=== PATIENT | male | born 1945 | race Caucasian/White ===

== ENCOUNTER 2023-09-02 09:21 | Outpatient (AMB) | payer OTHER, SELFPAY ==
--- NOTE | 2023-09-02 09:26 | MHC.OFFVIS ---
Intake Vital Signs 09/02/23 10:16 Height 6 ft Weight 202 lb 2 oz BMI 27.4 BP 96/60 Blood Pressure Location Lt brachial Position Sitting Pulse 73 Pulse Source Pulse Oximeter Pulse Oximetry (%) 96 Oxygen Delivery Method Room Air Intake Visit Reasons: ENP-Parkinson Disease - Confirmed Intake Note: Pt presents to the office for new pt evaluation for Parkinson's. Roper Operator Required: No Allergies Sulfa (Sulfonamide Antibiotics) Allergy (Intermediate, Verified 09/02/23 09:33) Fever lamotil Allergy (Intermediate, Uncoded 09/02/23 09:33) Fever Medication List - Last Reconciled 09/02/23 by Yaquelin Marquez MD apixaban 5 mg PO BID aspirin 81 mg PO DAILY atorvastatin 10 mg PO QPM cholecalciferol (vitamin D3) 25 mcg PO DAILY furosemide 20 mg PO DAILY metoprolol succinate ER 25 mg PO BID multivitamin 1 tab PO DAILY HPI HPI Comments History of Present Illness Details 77y/o right handed male with parkinsons and tremors comes for further management. About 10 - 12 years ago he started noticing tremors in both his hands R>L - both action and posture.He was diagnosed with familial tremors ( his father and sister have tremors).He was trialed on primidone, propranolol, gabapentin, sinemet , neupro patch etc with poor response.He noticed his tremors worsened in his left UE and also noticed some difficulty in his left leg weakness in 2015 . He was seen by a movement disorder specialist but could not confirm diagnosis. he had LON scan last year c/w decreased dopamine uptake c/w Parkinsons disease.In 2020 he was referred for DBS but was cancelled because of his new diagnosis of Atrial Fibrillation which is now controlled by medications. He had focused ultrasound therapy ( left) on Jul 22 2023 at [facility] - he did well for 2 weeks and then his symptoms recurred. He also tried calitrio which did not help. Cognition- mild issues Sleep- no sleep talking Mood- normal Motivation- normal Speech- softer, and has drooling Handwriting- illegible Using utensils- can manage Dressing-slower SHower- slower Gait- OK slower , feels off balance Bowel movements - ileostomy for ulcerative colitis Bladder- normal, kidney stones Falls- 2 last year( fell off the ladder) No vertigo No double vision No hallucinations No serious head injury- exposure to trichlorethylene [facility] Medical History (Updated 09/02/23 @ 10:31 by Yaquelin Marquez MD) Familial tremor Ulcerative colitis Macular degeneration Parkinson's disease without fluctuating manifestations Obstructive sleep apnea of adult Hearing loss Atrial fibrillation Kidney stone Cataract Surgical History Mitral valve replaced H/O brain surgery Status post cardiac surgery H/O vasectomy H/O ileostomy Family History Father No problems noted. Mother No problems noted. Social History Household Members: Spouse Housing: House Alcohol intake: former Patient Tobacco Use Status: Former Tobacco user Physical Exam Const General: cooperative, healthy appearing and comfortable Nutritional Appearance: average body habitus Orientation/consciousness: patient oriented x3 Neuro Other: Decreased facial expression and blink Hypophonia High amplitude rest , postural and action tremors left Right - UE mild postural tremors and rest tremors Cog wheel rigidity mild L>R FFM - moderately decreased Foot tapd - decreased nam He has trouble emptying his ileostomy pouch because of his right hand tremors. General: patient oriented x3, moves all extremities and no focal motor deficits Cranial nerves: Yes Bilaterally intact EOM present, Yes Normal facial strength present, Yes Midline tongue present and Yes Symmetric palate elevation present Cognition (Neuro): normal cognition Gait exam (Neuro): Other gait observations present (decreased arm swings, stooped, slow and mild decreased stride) Deep tendon reflexes (DTR's): Right triceps reflex intensity grade: 1+, Left triceps reflex intensity grade: 1+, Rt Biceps (C5, C6): 1+, Left biceps reflex intensity grade: 1+, Right brachioradialis reflex intensity grade: 1+, Left brachioradialis reflex intensity grade: 1+, Right patellar reflex intensity grade: 1+ and Left patellar reflex intensity grade: 1+ Coordination: [id number] test normal Psych Appearance: grossly normal Assessment & Plan Assessment & Plan (1) Familial tremor: Comment: poorly controlled Code(s): G25.0 - Essential tremor (2) Parkinson's disease without fluctuating manifestations: Comment: mild stage 3a Code(s): G20.A1 - Parkinson's disease without dyskinesia, without mention of fluctuations Plan I will retrial him on sinemet 25/100 tid and gabapentin 100mg tid side effects discussed Voice exercises PT for gait and balance Orders: Orders PT Evaluation and Treatment Today G20.A1 - Parkinson's disease without dyskinesia, without mention of fluctuations, G25.0 - Essential tremor Medications: New carbidopa-levodopa 25-100 mg (Sinemet) 1 tab PO TID 90 tabs 1RF gabapentin 100 mg PO TID 90 caps 1RF Coding Level of Care Code New Pt Level 5 (88347) Diagnoses Familial tremor G25.0 Parkinson's disease without fluctuating manifestations G20.A1
[2023-09-02 10:16] VITALS: BP 96/60; PULSE 73; O2SAT 96; BMI 27.4
== END 2023-09-02 10:30 | disposition home or self-care (01) ==
PROVIDERS: Visit Provider Psychiatry & Neurology Neurology
DX: G20.A1 Parkinson's disease without dyskinesia, without mention of fluctuations (principal)
CPT/HCPCS: 99204

== ENCOUNTER → 2023-09-02 09:21 | Outpatient (BNVA) | payer OTHER, SELFPAY | PROVIDERS: Visit Provider Psychiatry & Neurology Neurology | DX: G20.A1 Parkinson's disease without dyskinesia, without mention of fluctuations (principal); G25.0 Essential tremor | CPT/HCPCS: 99202 ==

== ENCOUNTER 2023-11-26 13:12 | Outpatient (AMB) | payer OTHER, SELFPAY ==
--- NOTE | 2023-11-26 13:16 | MHC.OFFVIS ---
Intake Vital Signs 11/26/23 13:17 Height 6 ft Weight 194 lb 6 oz BMI 26.4 BP 112/68 Blood Pressure Location Rt brachial Position Sitting Respiration 16 Pulse 77 Pulse Source Pulse Oximeter Pulse Oximetry (%) 95 Oxygen Delivery Method Room Air Intake Visit Reasons: 2 mo f/u - Parkinson-LVM Intake Note: Pt presents to the office for a 3 month follow up for familial tremors. Local Coordinator Required: No Allergies Sulfa (Sulfonamide Antibiotics) Allergy (Intermediate, Verified 11/26/23 13:17) Fever lamotil Allergy (Intermediate, Uncoded 11/26/23 13:17) Fever HPI HPI Comments History of Present Illness Details 77y/o right handed male with parkinsons and tremors comes for follow up. he was starte don sinemet 25/100 tid and gabapentin 100 mg bid He stopped after his prescription ran out and did not notice any improvement. He is scheduled for a second focused ultrasound treatment in 1 month Previous History- About 10 - 12 years ago he started noticing tremors in both his hands R>L - both action and posture.He was diagnosed with familial tremors ( his father and sister have tremors).He was trialed on primidone, propranolol, gabapentin, sinemet , neupro patch etc with poor response.He noticed his tremors worsened in his left UE and also noticed some difficulty in his left leg weakness in 2015 . He was seen by a movement disorder specialist but could not confirm diagnosis. he had LON scan last year c/w decreased dopamine uptake c/w Parkinsons disease.In 2020 he was referred for DBS but was cancelled because of his new diagnosis of Atrial Fibrillation which is now controlled by medications. He had focused ultrasound therapy ( left) on Jul 22 2023 at [facility] - he did well for 2 weeks and then his symptoms recurred. He also tried calitrio which did not help. Cognition- mild issues Sleep- no sleep talking Mood- normal Motivation- normal Speech- softer, and has drooling Handwriting- illegible Using utensils- can manage Dressing-slower SHower- slower Gait- OK slower , feels off balance Bowel movements - ileostomy for ulcerative colitis Bladder- normal, kidney stones Falls- 2 last year( fell off the ladder) No vertigo No double vision No hallucinations No serious head injury- exposure to trichlorethylene [facility] Medical History Familial tremor Ulcerative colitis Macular degeneration Parkinson's disease without fluctuating manifestations Obstructive sleep apnea of adult Hearing loss Atrial fibrillation Kidney stone Cataract Surgical History Mitral valve replaced H/O brain surgery Status post cardiac surgery H/O vasectomy H/O ileostomy Family History Father No problems noted. Mother No problems noted. Social History Household Members: Spouse Housing: House Alcohol intake: former Patient Tobacco Use Status: Former Tobacco user Physical Exam Vital Signs: Last Vital Signs Pulse 77 11/26/23 13:17 Resp 16 11/26/23 13:17 BP 112/68 11/26/23 13:17 Pulse Ox 95 11/26/23 13:17 Oxygen Delivery Method Room Air 11/26/23 13:17 BMI result Body Mass Index 26.4 Const General: cooperative, healthy appearing and comfortable Nutritional Appearance: average body habitus Orientation/consciousness: patient oriented x3 Neuro Other: Decreased facial expression and blink Hypophonia High amplitude rest , postural and action tremors left Right - UE mild postural tremors and rest tremors Cog wheel rigidity mild L>R FFM - moderately decreased Foot tapd - decreased nam He has trouble emptying his ileostomy pouch because of his right hand tremors. General: patient oriented x3, moves all extremities and no focal motor deficits Cranial nerves: Yes Bilaterally intact EOM present, Yes Midline tongue present and Yes Symmetric palate elevation present Cognition (Neuro): normal cognition Gait exam (Neuro): Other gait observations present (decreased arm swings, stooped, slow and mild decreased stride) Coordination: [id number] test normal Psych Appearance: grossly normal Assessment & Plan Assessment & Plan (1) Familial tremor: Comment: poorly controlled Code(s): G25.0 - Essential tremor (2) Parkinson's disease without fluctuating manifestations: Comment: mild stage 3a Code(s): G20.A1 - Parkinson's disease without dyskinesia, without mention of fluctuations Plan He is scheduled for Focused Ultrasound next month . will hold off on medications for now Voice exercises PT for gait and balance Coding Level of Care Code Est Pt Level 4 (82717) Diagnoses Familial tremor G25.0 Parkinson's disease without fluctuating manifestations G20.A1
[2023-11-26 13:17] VITALS: BP 112/68; PULSE 77; RESP 16; O2SAT 95; BMI 26.4
== END 2023-11-26 13:34 | disposition home or self-care (01) ==
PROVIDERS: Visit Provider Psychiatry & Neurology Neurology
DX: G25.0 Essential tremor (principal); G20.A1 Parkinson's disease without dyskinesia, without mention of fluctuations
CPT/HCPCS: 99214

== ENCOUNTER → 2023-11-26 13:12 | Outpatient (BNVA) | payer OTHER, SELFPAY | PROVIDERS: Visit Provider Psychiatry & Neurology Neurology | DX: G20.A1 Parkinson's disease without dyskinesia, without mention of fluctuations (principal) | CPT/HCPCS: 99212 ==

== ENCOUNTER 2024-03-30 12:20 | Outpatient (AMB) | payer OTHER, SELFPAY ==
--- NOTE | 2024-03-30 12:31 | A.OFFVIS_ITS ---
Vital Signs 03/30/24 12:32 Respiration 16 Pulse 61 Pulse Source Pulse Oximeter Pulse Oximetry (%) 97 Oxygen Delivery Method Room Air Intake Visit Reasons: 4 Month F/U - LVM w/add Intake Note: Pt presents for a 4 month follow up for familial tremors. Api Product Manager Required: No Allergies Sulfa (Sulfonamide Antibiotics) Allergy (Intermediate, Verified 03/30/24 12:32) Fever lamotil Allergy (Intermediate, Uncoded 03/30/24 12:32) Fever Medication List - Last Reconciled 03/30/24 by Yaquelin Marquez MD apixaban 5 mg PO BID aspirin 81 mg PO DAILY atorvastatin 10 mg PO QPM cholecalciferol (vitamin D3) 25 mcg PO DAILY metoprolol succinate ER 25 mg PO BID multivitamin 1 tab PO DAILY HPI Comments Details: 78y/o right handed male with parkinsons and tremors comes for follow up. he was started on sinemet 25/100 tid and gabapentin 100 mg bid He stopped after his prescription ran out and did not notice any improvement. He had a repeat focused ultarsound on the left - did not notice improvement . he had mild improvement the first 2 weeks .He was not a candidate for DBS due to being on eliquis. Previous History- About 10 - 12 years ago he started noticing tremors in both his hands R>L - both action and posture.He was diagnosed with familial tremors ( his father and sister have tremors).He was trialed on primidone, propranolol, gabapentin, sinemet , neupro patch etc with poor response.He noticed his tremors worsened in his left UE and also noticed some difficulty in his left leg weakness in 2015 . He was seen by a movement disorder specialist but could not confirm diagnosis. he had LON scan last year c/w decreased dopamine uptake c/w Parkinsons disease.In 2020 he was referred for DBS but was cancelled because of his new diagnosis of Atrial Fibrillation which is now controlled by medications. He had focused ultrasound therapy ( left) on Jul 22 2023 at [facility] - he did well for 2 weeks and then his symptoms recurred. He also tried calitrio which did not help. Cognition- mild issues Sleep- no sleep talking Mood- normal Motivation- normal Speech- softer, and has drooling Handwriting- illegible Using utensils- can manage Dressing-slower SHower- slower Gait- OK slower , feels off balance Bowel movements - ileostomy for ulcerative colitis Bladder- normal, kidney stones Falls- 2 last year( fell off the ladder) No vertigo No double vision No hallucinations No serious head injury- exposure to trichlorethylene [facility] Medical History Familial tremor Ulcerative colitis Macular degeneration Parkinson's disease without fluctuating manifestations Obstructive sleep apnea of adult Hearing loss Atrial fibrillation Kidney stone Cataract Surgical History Mitral valve replaced H/O brain surgery Status post cardiac surgery H/O vasectomy H/O ileostomy Family History Father No problems noted. Mother No problems noted. Social History Household Members: Spouse Housing: House Alcohol intake: former Patient Tobacco Use Status: Former Tobacco user Physical Exam Vital Signs: Last Vital Signs Pulse 61 03/30/24 12:32 Resp 16 03/30/24 12:32 Pulse Ox 97 03/30/24 12:32 Oxygen Delivery Method Room Air 03/30/24 12:32 Const General: cooperative, healthy appearing and comfortable Nutritional Appearance: average body habitus Orientation/consciousness: patient oriented x3 Neuro Other: Decreased facial expression and blink Hypophonia High amplitude rest , postural and action tremors left Right - UE mild postural tremors and rest tremors Cog wheel rigidity mild L>R FFM - moderately decreased Foot tapd - decreased nam He has trouble emptying his ileostomy pouch because of his right hand tremors. General: patient oriented x3, moves all extremities and no focal motor deficits Cranial nerves: Yes Bilaterally intact EOM present, Yes Midline tongue present and Yes Symmetric palate elevation present Cognition (Neuro): normal cognition Gait exam (Neuro): Other gait observations present (decreased arm swings, stooped, slow and mild decreased stride) Coordination: [id number] test normal Psych Appearance: grossly normal Assessment & Plan Assessment & Plan (1) Familial tremor: Comment: poorly controlled Code(s): G25.0 - Essential tremor Category: Medical (2) Parkinson's disease without fluctuating manifestations: Comment: mild stage 3a Code(s): G20.A1 - Parkinson's disease without dyskinesia, without mention of fluctuations Category: Medical Plan Retrial Carbidopa/levodopa 25/100 tid Speech therapy Occupational therapy for hand strengthening Orders: Orders OT Evaluation and Treatment Today G20.A1 - Parkinson's disease without dyskinesia, without mention of fluctuations, G25.0 - Essential tremor Referrals Speech and Hearing Referral G20.A1 - Parkinson's disease without dyskinesia, without mention of fluctuations Medications: New carbidopa-levodopa 25-100 mg 1 tab PO TID 90 tabs 6RF Discontinued carbidopa-levodopa 25-100 mg (Sinemet) Discontinued Reason: Patient no longer taking 1 tab PO TID 90 tabs 1RF gabapentin Discontinued Reason: Patient no longer taking 100 mg PO TID 90 caps 1RF Coding Level of Care Code Est Pt Level 4 (66902) Complex EM visit Add On G2211 Diagnoses Familial tremor G25.0 Parkinson's disease without fluctuating manifestations G20.A1
[2024-03-30 12:32] VITALS: PULSE 61; RESP 16; O2SAT 97
== END 2024-03-30 13:10 | disposition home or self-care (01) ==
PROVIDERS: Visit Provider Psychiatry & Neurology Neurology
DX: G25.0 Essential tremor (principal); G20.A1 Parkinson's disease without dyskinesia, without mention of fluctuations
CPT/HCPCS: 99214; G2211

== ENCOUNTER → 2024-03-30 12:20 | Outpatient (BNVA) | payer OTHER, SELFPAY | PROVIDERS: Visit Provider Psychiatry & Neurology Neurology | DX: G20.A1 Parkinson's disease without dyskinesia, without mention of fluctuations (principal) | CPT/HCPCS: 99212 ==

== ENCOUNTER 2024-07-28 12:51 | Outpatient (RCR) | payer OTHER, SELFPAY ==
--- NOTE | 2024-09-06 16:38 | MHC.SP.ADU ---
Referring provider: Yaquelin Perez MD Reason for Referral: Mild cognitive issues Type of Treatment: 61888 Standardized Cognitive Performance Testing, per hour Date of Plan of Treatment: 07/28/24 Onset of Symptoms/Illness: 07/28/18 Date Treatment Started: 07/28/24 Medical Diagnosis: G20.A1 Parkinson?s disease without dyskinesia, without mention of fluctuations Primary Speech Language Diagnosis: R41.841 Cognitive communication disorder Secondary Speech Language Diagnosis: R49.0 Dysphonia History Boston Last is a 78 year old male with history of Parkinson?s Disease referred for a cognitive linguistic evaluation by Yaquelin Perez MD from [facility] in [place], [place]. Mr. Last noticed a tremor in both his hands, right worse then left about 10-12 years ago, with noted history of familial tremors in his father and sister. Mr. Last was started on sinemet and gabapentin for his tremors. He stopped taking these medications once his prescription ran out, as he ?did not notice any improvement.? Mr. Last was prescribed carbidopa-levodopa. He was referred for deep brain stimulation, but this procedure was cancelled, contraindicated by patient?s new diagnosis of AFIB, which is now controlled by medications. Mr. Last did have focused ultrasound therapy on 07/22/23 at [facility]. He reportedly did well for 2 weeks then had recurrence of symptoms. 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 He says that after this procedure he began having trouble swallowing, needing to crush his pills and eat a softer diet. Mr. Last says his swallow gradually improved and he can take pills whole now, but he continues to experience globus sensation. Mr. Last says he ?needs to drink liquids to push things down.? He does not recall having an instrumental swallow study done in the past. Mr. Last was referred for concerns of mild issues with his cognition and upon further interview revealed he has also been experiencing drooling and ?softer speech.? Mr. Last is currently retired, has his Bachelor?s degree and previously worked as an engineering drafter. He enjoys exercising at the [employer] and spending time with his family. Mr. Last is , has two adult children, and lives in a private residence. He uses assistive devices: glasses, cane/walker for ambulation, and hearing aids. Medical History: Other: Medical History Familial tremor Ulcerative colitis Macular degeneration Parkinson's disease without fluctuating manifestations Obstructive sleep apnea of adult Hearing loss Atrial fibrillation Kidney stone Cataract Surgical History Mitral valve replaced H/O brain surgery Status post cardiac surgery H/O vasectomy H/O ileostomy Social History: Employment Status: Retired Highest level of education obtained: Completed Bachelor's Current Living Situation: Lives in a private residence with his Assistive Devices in use: Cane Glasses/Contacts Hearing Aids Walker Comment: Past Speech Language Therapy: Mr. Last reports receiving speech therapy at [facility] 6 years ago. He recalls working on ?speaking louder? and attending on a weekly basis. Swallowing History: Dysphagia Specific: Oralpharyngeal Dysphagia Comments: Patient reports coughing when drinking liquids and globus sensation with intake of solids. He reports he ?drinks liquids to get it down.? He reports history of being on a softer diet and crushing pills for ease of swallowing. He is recommended an instrumental swallow exam (MBSS) to assess extent of oropharyngeal dysphagia, to identify safest, least restrictive diet textures, and to identify compensatory strategies if indicated. Pre-eval Risk for Aspiration: Neurological Condition Assessment Speech Production: Clinical Impression: Intact Observations: Mr. Last scored 100% intelligibility rating on the Tikofsky's 50-word Intelligibility Test. Mr. Last was perceived as 90-100% intelligible with precise articulation of consonant sounds on picture naming, reading, and in connected speech. Mr. Last formulated complex sentences with appropriate use of semantics and grammatical structures, such as articles, pronouns, functor words, verb tenses, and descriptor words. Informal Voice Assessment: Voice Loudness: Moderately Soft/Quiet Voice Phonatory-based Quality: Breathy, Weak, Loss of Voice Voice Other Observations: Progressively Weak Voice Clinical Impression: Impaired Clinicial Observations: Mr. Last completed the Voice Handicap Index (VHI). The VHI is a psychometrically validated tool consisting of 30 statements in the domains of functional, physical and emotional impact. Mr. Last was instructed to rate these statements from 0 meaning the statement ?never? applied to 4 meaning ?always.? These self-ratings illustrate the impact a voice condition has on an individual?s quality of life. Mr. Last indicated that his voice difficulty affects him notably in the functional and physical domains. He indicated that he uses the phone less often than he would like to and avoids groups of people because of his voice. He also reported others have difficulty hearing him because of his voice, he is often asked to repeat himself, and his voice difficulties restrict his personal and social life. Mr. Last?s total score of 30 correlates with a self-perception of mild voice problems (scores 0-30). Mr. Last presents today with a progressively weak voice as the session progressed. His speech was significantly clearer when he spoke with an amplified voice. He recalls ?learning to do this in speech therapy so others can hear it better.? Tests of Speech & Lang Adults: Tests of Cognition: RBANS Clinical Impression: Intact Observations: [place]?s cognitive linguistic skills were evaluated using the RBANS: The Repeatable Battery for the Assessment of Neuropsychological Status (RBANS-Updated Form A). The RBANS assesses aspects of cognitive memory, language, and attention skills. The RBANS is considered a screening battery for cognitive function used with adolescents and adults, ages 12 to 89 years. Composite domains assessed in this evaluation are: Immediate Memory, Visuospatial/Constructional, Language, Attention, and Delayed Memory. Assessed domains and their scores are summarized below: IMMEDIATE MEMORY: These subtests assess an individual?s ability to remember a small amount of information immediately after it is presented. Mr. Last was presented with a list of 10 spoken words and was instructed to repeat back as many words as he could remember from the list (List Learning). He initially recalled 3 items from the list of 10. After 3 repetitions, he recalled up to 6 items on the list, indicating that verbal repetition seems to facilitate his recall to some degree. After listening to a spoken paragraph, Mr. Last was instructed to re-tell the story with as much detail as he could remember (Story memory). He recalled dates, locations, and other specific details. No difficulties were identified in the area of immediate memory. List Learning Total Score: 19 Scaled Score: 6 Interpretation: Low Average Story Memory Total Score: 15 Scaled Score: 9 Interpretation: Average Immediate Memory Index score: 85 Interpretation: Low Average VISUOSPATIAL/CONSTRUCTIONAL: These subtests assess an individual?s visuospatial skills and perception of spatial relationships. Mr. Last was first instructed to draw an accurate copy of a figure presented to him (Figure Copy). Mr. Last included most components in his copy with accurate placement. To screen his visuospatial skills, he was also instructed to identify lines that matched based on orientation and angle (Line Orientation) and was able to complete this task in all trials. Mr. Last demonstrated high average performance on these subtests. Figure Copy Total Score: 18 Scaled Score: 10 Interpretation: Average Line Orientation Total Score: 20 Percentile Group: >75 Interpretation: High Average Visuospatial/Constructional Index score: 112 Interpretation: High Average LANGUAGE: These subtests assess an individual?s word retrieval skills. Mr. Last correctly named 9 out of 10 images during a confrontational naming task (Picture Naming). He mis-named trumpet as another similar instrument, ?bugle.? He was also instructed to name as many fruits and vegetables as he could in 60 seconds to assess his semantic fluency (Semantic Fluency). Mr. Last named 14 items in that category. No errors or perseverations were noted. Mr. Last denies word finding difficulty. Picture Naming Total Score: 9 Percentile Group: 26-50 Interpretation: Average Semantic Fluency Total Score: 14 Scaled Score: 6 Interpretation: Low Average Language Index score: 90 Interpretation: Average ATTENTION: These subtests assess an individual?s capacity to remember and manipulate both visually and orally presented information in short-term memory storage. Mr. Last was first instructed to repeat back number series that were between 2-9 digits long (Digit Span). He performed well on this task and impressively recalled all digit series (up to 9 digits at a time). Mr. Last was also instructed to code markings with numbers (Coding). Mr. Last made no errors completing this task. No difficulties were identified in the area of attention. Digit Span Total Score: 16 Scaled Score: 16 Interpretation: Very Superior Coding Total Score: 32 Scaled Score: 8 Interpretation: Average Attention Index score: 112 Interpretation: High Average DELAYED MEMORY: These subtests assess an individual?s retrieval of information from long-term memory. Mr. Last was able to recall details from a story (Story Recall) and redrew a drawing he had copied earlier (Figure Recall), but exhibited difficulty recalling items from the list of unrelated words which were presented to him at the beginning of the evaluation period (List Recall). He was able to recognize most words from the list when asked yes/no questions (i.e. ?Was ?market? on the list??) (List Recognition). List Recall Total Score: 0 Percentile Group: <2 Interpretation: Extremely Low List Recognition Total Score: 18 Percentile Group: 17-25 Interpretation: Low Average Story Recall Total Score: 6 Scaled Score: 7 Interpretation: Low Average Figure Recall Total Score: 18 Scaled Score: 14 Interpretation: Superior Delayed Memory Index Score: 86 Interpretation: Low Average SUM OF INDEX SCORES: 485 TOTAL SCALE SCORE: 95 PERCENTILE RANK: 37 INTERPRETATION: AVERAGE PERFORMANCE Radha Rhoades (1998). Repeatable Battery for the Assessment of Neuropsychological Status [Manual]. [place]: Virgie. Impressions and Recommendations Summary: Mr. Last?s performance on standardized measures revealed average cognitive linguistic ability for his age. He presented with superior abilities in areas of visuospatial skills and attention. He performed within the average range on other assessments targeting language and evidenced mild difficulties recalling unrelated word lists. While speech therapy is not warranted at this time for cognitive linguistic treatment, Mr. Last is recommended to continue monitoring his cognition closely. If there are any changes or worsening of symptoms, he is advised to contact his referring provider and, at this point, a repeat-assessment may be appropriate. Mr. Last also presents with moderate dysphonia, characterized notably by weak voice, secondary to his underlying diagnosis of Parkinson?s Disease. Mr. Last reports that his voice difficulties keep him from engaging in social groups and speaking on the phone as often as he would like. He also notes that friends and family members have difficulty hearing him. Mr. Last is recommended further acoustic/perceptual evaluation of his voice with consideration of traditional speech therapy versus more intensive programs, such as [facility] ([facility]). FLORIST DESIGNER also recommends a referral for patient to have an instrumental swallow evaluation (i.e. MBSS), as Mr. Last is reporting dysphagia symptoms, such as coughing on liquids and globus sensation after eating. Impact on Daily Function/Activity Limitations: Daily Activities: Mild Interpersonal Interactions: Mild Education: Employment: Community: Mild Recommendation for Speech Therapy: Further Testing Needed Modified Barium Swallow Study - Outpatient [facility] Goals: TBD with voice evaluation. Cognitive linguistic treatment is not indicated at this time. Recommended Referrals to be Discussed with Primary Care Provider: Neurology Patient Education: Completed: Yes Patient/Caregiver Education: Described Results of Evaluation Patient expressed understanding of evaluation Comments/Barriers to Learning: It was a pleasure meeting and working with Mr. Last. Please do not hesitate to contact the [facility] if we can be of further assistance in his care. [employer] Clinican/Clinical Fellow: No Supervisory Statement: N/A Speech Language Pathologist: Pilar Sky M.A., CCC-FLORIST DESIGNER
== END 2025-01-21 11:19 | disposition home or self-care (01) ==
LOC: HO.SH 12:51
PROVIDERS: PCP General Practice; Visit Provider Psychiatry & Neurology Neurology
DX: G20.A1 Parkinson's disease without dyskinesia, without mention of fluctuations (principal)
CPT/HCPCS: 96125

== ENCOUNTER 2024-10-05 12:24 | Outpatient (AMB) | payer OTHER, SELFPAY ==
--- NOTE | 2024-10-05 12:33 | MHC.OFFVIS ---
Vital Signs 10/05/24 12:34 Height 6 ft Weight 194 lb BMI 26.3 Intake Visit Reasons: 4 Month F/U - LVM w/add Intake Note: Patient presents for 4 month follow up Allergies Sulfa (Sulfonamide Antibiotics) Allergy (Intermediate, Verified 10/05/24 12:36) Fever lamotil Allergy (Intermediate, Uncoded 10/05/24 12:36) Fever HPI Comments Details: 78y/o right handed male with parkinsons and tremors comes for follow up. He is on sinemet 25/100 1 1/2 tabs tid .he is doing well. He had a repeat focused ultrasound on the left and did well. He is scheduled for his left hand ( Right brain in November) he had mild improvement the first 2 weeks .He was not a candidate for DBS due to being on eliquis. Previous History- About 10 - 12 years ago he started noticing tremors in both his hands R>L - both action and posture.He was diagnosed with familial tremors ( his father and sister have tremors).He was trialed on primidone, propranolol, gabapentin, sinemet , neupro patch etc with poor response.He noticed his tremors worsened in his left UE and also noticed some difficulty in his left leg weakness in 2015 . He was seen by a movement disorder specialist but could not confirm diagnosis. he had LON scan last year c/w decreased dopamine uptake c/w Parkinsons disease.In 2020 he was referred for DBS but was cancelled because of his new diagnosis of Atrial Fibrillation which is now controlled by medications. He had focused ultrasound therapy ( left) on Jul 22 2023 at [facility] - he did well for 2 weeks and then his symptoms recurred. He also tried calitrio which did not help. Cognition- mild issues Sleep- no sleep talking Mood- normal Motivation- normal Speech- softer, and has drooling Handwriting- illegible Using utensils- can manage Dressing-slower SHower- slower Gait- OK slower , feels off balance Bowel movements - ileostomy for ulcerative colitis Bladder- normal, kidney stones Falls- 2 last year( fell off the ladder) No vertigo No double vision No hallucinations No serious head injury- exposure to trichlorethylene [facility] Medical History Primary sclerosing cholangitis Familial tremor Ulcerative colitis Macular degeneration Parkinson's disease without fluctuating manifestations Obstructive sleep apnea of adult Hearing loss Atrial fibrillation Kidney stone Cataract Surgical History H/O endoscopy Mitral valve replaced H/O brain surgery Status post cardiac surgery H/O vasectomy H/O ileostomy Family History Father No problems noted. Mother No problems noted. Social History Household Members: Spouse Housing: House Alcohol intake: former Patient Tobacco Use Status: Former Tobacco user Physical Exam Vital Signs: BMI result Body Mass Index 26.3 Const General: cooperative, healthy appearing and comfortable Nutritional Appearance: average body habitus Orientation/consciousness: patient oriented x3 Neuro Other: Mild Decreased facial expression and blink Mild Hypophonia High amplitude rest , postural and action tremors left Right - No tremors Cog wheel rigidity mild L>R FFM - mild decreased Foot taps - decreased nam He has trouble emptying his ileostomy pouch because of his right hand tremors. General: patient oriented x3, moves all extremities and no focal motor deficits Cranial nerves: Yes Bilaterally intact EOM present, Yes Midline tongue present and Yes Symmetric palate elevation present Cognition (Neuro): normal cognition Gait exam (Neuro): Other gait observations present (decreased arm swings, stooped, slow and mild decreased stride) Coordination: [id number] test normal Psych Appearance: grossly normal Assessment & Plan Assessment & Plan (1) Familial tremor: Comment: poorly controlled Code(s): G25.0 - Essential tremor Category: Medical (2) Parkinson's disease without fluctuating manifestations: Comment: mild stage 3a Code(s): G20.A1 - Parkinson's disease without dyskinesia, without mention of fluctuations Category: Medical Qualifiers: Dyskinesia presence: without dyskinesia Qualified Code(s): G20.A1 - Parkinson's disease without dyskinesia, without mention of fluctuations Plan continue Carbidopa/levodopa - 09/16 tabs tid continue exercise Coding Level of Care Code Est Pt Level 4 (74490) Complex EM visit Add On G2211 Diagnoses Familial tremor G25.0 Parkinson's disease without dyskinesia or fluctuating manifestations G20.A1 Dyskinesia presence: without dyskinesia
[2024-10-05 12:34] VITALS: BMI 26.3
--- OUTSIDE RECORDS SUMMARY | 2024-10-05 13:59 | XMS_ITS | Clinical Summary ---
Author Organization [facility] Address [address] [place] [address] Care Team Providers Care Box Printer Name Role Phone Sam Merchant Primary Care Provider [phone] Allergies Active Allergy Reactions Criticality Noted Date Comments Diphenoxylate-Atropine Fever 09/19/2004 Elevated Temperature. Sulfa (Sulfonamide Antibiotics) Fever 09/19/2004 Elevated Temperature Medications Eliquis 5 mg tablet TAKE ONE TABLET BY MOUTH EVERY 12 HOURS FOR PREVENTION OF BLOOD CLOTS 01/07/20 24 025 Active aspirin 81 mg EC tablet Take 81 mg by mouth daily. Active atorvastatin (LIPITOR) 10 mg tablet TAKE ONE TABLET BY MOUTH ONCE DAILY FOR CHOLESTEROL (DISPENSE WHOLE TABLET) 01/07/20 24 025 Active carbidopa-levodopa (PARCOPA) 25-100 mg per disintegrating tablet 1 tablet. 05/06/20 23 025 Active carbidopa-levodopa (SINEMET) 25-100 mg per tablet Take 1 tablet by mouth 3 times a day. 01/07/20 24 025 Active metoprolol tartrate (LOPRESSOR) 25 mg tablet TAKE ONE TABLET BY MOUTH TWICE DAILY FOR BLOOD PRESSURE/HEART 01/07/20 025 Active cholecalciferol (VITAMIN D3) 1,000 unit tablet Take 1,000 Units by mouth daily. Active therapeutic multivitamin (THERAGRAN) tablet Take 1 tablet by mouth daily. Active vits A,C,E/niac/B2/lut/ mn/glut (EYE-BENTLEY EXTRA + LUTEIN ORAL) Take by mouth. Activ e Active Problems Problem Noted Date Diagnosed Date Erectile dysfunction 04/14/2024 Abnormal findings on diagnos tic imaging of liver and biliary tract 04/14/2024 Abnormal results of liver function studies 04/14 Achilles tendinitis, right leg 04/14/2024 Age-related macular degeneration 04/14/2024 Calculus of kidney 04/14/2024 Overview (04/14/2024): Jan 03, 2012 Entered By: SHADI GORDON Comment: None on US 2009 or 2010 Cholelithiasis without obstruction 04/14/2024 Dizziness and giddiness 04/14/2024 Eczema 04/14/2024 Hearing loss 04/14/2024 History of aortic valve replacement 04/14/2024 Overview (04/14/2024): Sep 08, 2023 Entered By: SAM MERCHANT Comment: Dec 2022 Hyperlipidemia 04/14/2024 Macula scars of posterior po le (postinflammatory) (post-traumatic), left eye 04/14/2024 Mitral valve disease 04/14/2024 Obesity 04/14/2024 Parkinson's disease 04/14/2024 Chronic atrial fibrillation 04/14/2024 Age-related cataract of left eye 04/14/2024 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 brief LOC after the fall. Aug/ Sep 2021-- slipped on ice, and bruised arm and buttock (healed). No LOC with 2nd fall. Gait abnormality 10/23/2022 Overview (04/14/2024): Walks Ileostomy in place 10/23/2022 ADITI (obstructive sleep apnea) 10/23/2022 Overview (04/14/2024): does not use CPAP Stroke 10/23/2022 Overview (04/14/2024): 2004. Tremor 10/23/2022 Ulcerative colitis 10/23/2022 Overview (04/14/2024): bowel resection/ has an ileostomy Jan 02, 2012 Entered By: SHADI GORDON Comment: Colectomy 1977 Immunizations Name Administration Dates Next Due COVID-19, Moderna, mRNA, LNP -S, Bivalent Booster, PF 05/22/2022 Covid-19 Monovalent Vaccine, Moderna, mRNA, PF 12/28/2021,07/18/2021,11/25/2020,2020 Covid-19, Moderna, mRNA, Vac cine, PF, 50 mcg/0.5 mL (for age 12 y and up) 06/18/2023 Hepatitis A Vaccine, Adult Dosage 05/28/2005 Hepatitis A and Hepatitis B Vaccine 07/18/2014,0 02/15/2014,01/18/2014 Influenza, High Dose Seasona l, Preservative Free 06/23/2018,06/14/2017 Influenza, High Dose Seasona l, Quadrivalent PF 06/11/2023,05/22/2022,06/20/2021,2019 Influenza, Injectable, Madin Tana Canine Kidney, Preservative Free, Quadrivalent 06/22/2019 Influenza, Trivalent, MDV, Injectable 05/16/2019 ,05/16/2018,06/21/2017 Influenza, Unspecified 06/13/2023,2019,07/14/2016,2014,07/17/2014,06/15/2013,06/29/2012,1 ,06/15/2010,07/19/2009, 008,08/12/2007,07/18/2006,07/30/2005, Novel [id number], All Formulations 08/15/2009 Pneumococcal Conjugate Vacci ne, 13 Valent 02/20/2015 Pneumococcal Vaccine, Unspec ified Formulation 01/01/2011 Pneumococcal conjugate PCV20,polysaccharide [id number] conjugate, adjuvant, PF (Prevnar 20) 06/18/2023 RSV, Bivalent, Protein Subun it RSVpreF, Diluent Reconstituted, 0.5 mL, PF 06/11/2023 Tetanus Toxoid, Reduced Diph theria Toxoid, and Acellular Pertussis Vaccine, Adsorbed 02/20/2021,12/22/2009 Zoster Vaccine Recombinant 08/09/2019,04/07/2019 Zoster Vaccine, Live 03/25/2012,10/31/2009 Family History Medical History Relation Name Comments Fibromyalgia Mother Relation Name Status Comments Father Mother Social History Tobacco Use Types Packs/Day Years Used Date Smoking Tobacco: Former Cigarettes Smokeless Tobacco: Never Tobacco Cessation:Counseling Given: Not Answered Sex and Gender Information Value Date Recorded Sex Assigned at Male 04/15/2024 2:45 PM EDT Legal Sex Male 10:08 AM EDT Gender Identity Not on file Sexual Orientation Not on file Last Filed Vital Signs Vital Sign Reading Time Taken Comments Blood Pressure 165/78 04/15/2024 2:51 PM EDT Pulse 57 04/15/2024 2:51 PM EDT Temperature - - Respiratory Rate 18 04/15/2024 2:51 PM EDT Oxygen Saturation 98% 04/15/2024 2:51 PM EDT Inhaled Oxygen Concentration - - Weight 85 kg (187 lb 6.3 oz) 04/15/2024 2:51 PM EDT Height 178 cm (5' 10.08 ) 04/15/2024 2:51 PM EDT Body Mass Index 26.83 04/15/2024 2:51 PM EDT Plan of Treatment Health Maintenance Due Date Last Done Comments Hepatitis C Screening [address] Lung Cancer Screening (Baseline) 10/24/2023 10/24/2022 COVID-19 Vaccine (7 - 2023-2 5 season) 2024 06/18/2023, 05/22/2022, 12/28/2021, Additional history exists Influenza Vaccine (#1) 2024 3, 06/11/2023, 05/22/2022, Additional history exists Alcohol/Substance Use Screening 09/15/2024 Depression Screening and Follow-Up 09/15/2024 Health Care Proxy Review 09/15/2024 Social TV2 Holding of Health Lis ual Screening 09/15/2024 DTaP,Tdap,and Td Vaccines (3 - Td or Tdap) 02/20/2031 02/20/2021, 12/22/2009 Hepatitis B Vaccines Completed 07/18/2014, 02/15/2014, 01/18/2014 Zoster Vaccines Completed 08/09/2019, 03/16, 03/25/2012, Additional history exists RSV Vaccine (60+ years old a nd patients) Completed 06/11/2023 Pneumococcal Vaccine: 65+ Years Completed 3, 02/20/2015 Insurance [facility] MEDICARE [employer] Care Teams Box Printer Relationship Specialty Start Date End Date Sam Merchant [address] [place] [id number] PCP - General Internal Medicine 03/16/24
--- OUTSIDE RECORDS SUMMARY | 2024-10-05 13:59 | XMS_ITS | Clinical Summary ---
Author Organization [facility] Facility Address [address] [address] Care Team Providers Care Plant Technician/Control Room Operator Name Role Phone Unavailable Primary Care Provider Unavailabl e Social History Tobacco Use Types Packs/Day Years Used Date Smoking Tobacco: Never Assessed Sex and Gender Information Value Date Recorded Sex Assigned at Not on file Legal Sex Male 2:37 PM EDT Gender Identity Not on file Sexual Orientation Not on file Plan of Treatment Health Maintenance Due Date Last Done Comments Pneumococcal Vaccine: 65+ Ye ars (1 of 2 - PCV) 1950 Influenza Vaccine (#1) 2024 Hepatitis B Vaccine Aged Out No longe r eligible based on patient's age to complete this topic Insurance [facility] 1,2,3 (VACCN) [facility] 1,2,3 (VACCN)
--- OUTSIDE RECORDS SUMMARY | 2024-10-05 13:59 | XMS_ITS | Referral Summary ---
Author Organization [facility] Address [address] [place] [address] Care Team Providers Care Reducer Name Role Phone Sam Leija Primary Care Provider [phone] Allergies Active Allergy Reactions Criticality Noted Date [...] (04/14/2024): Sep 08, 2023 Entered By: SAM LEIJA Comment: Dec 2022 Hyperlipidemia 04/14/2024 Macula scars [...] ,05/16/2018,06/21/2017 Influenza, Unspecified 06/13/2023,2019,07/14/2016,2014,07/17/2014,06/15/2013,06/29/2012,1 ,06/15/2010,07/19/2009, 008,08/12/2007,07/18/2006,07/30/2005, Novel [id number], All Formulations 08/15/2009 Pneumococcal Conjugate Vacci ne, 13 Valent 02/20/2015 Pneumococcal Vaccine, Unspec ified Formulation 01/01/2011 Pneumococcal conjugate PCV20,polysaccharide [id number] conjugate, adjuvant, PF (Prevnar 20) 06/18/2023 RSV, Bivalent, Protein Subun it RSVpreF, Diluent Reconstituted, 0.5 mL, PF 06/11/2023 Tetanus Toxoid, Reduced Diph theria Toxoid, and Acellular Pertussis Vaccine, Adsorbed 02/20/2021,12/22/2009 Zoster Vaccine Recombinant 08/09/2019,04/07/2019 Zoster Vaccine, Live 03/25/2012,10/31/2009 Social History Tobacco Use Types Packs/Day Years [...] 04/15/2024 2:51 PM EDT Plan of Treatment Not on file Insurance [employer] [facility] Care Teams Reducer Relationship Specialty Start Date End Date Sam Leija [address] [place] [id number] PCP - General Internal Medicine 03/16/24
== END 2024-10-05 12:59 | disposition home or self-care (01) ==
PROVIDERS: Visit Provider Psychiatry & Neurology Neurology
DX: G25.0 Essential tremor (principal); G20.A1 Parkinson's disease without dyskinesia, without mention of fluctuations
CPT/HCPCS: 99214; G2211

== ENCOUNTER → 2024-10-05 12:24 | Outpatient (BNVA) | payer OTHER, SELFPAY | PROVIDERS: Visit Provider Psychiatry & Neurology Neurology | DX: G25.0 Essential tremor (principal); G20.A1 Parkinson's disease without dyskinesia, without mention of fluctuations | CPT/HCPCS: 99212 ==

== ENCOUNTER 2025-04-07 12:34 | Outpatient (AMB) | payer OTHER, SELFPAY ==
[2025-04-07 12:35] VITALS: BP 140/72; BMI 25.9
--- NOTE | 2025-04-07 12:35 | A.OFFVIS_ITS ---
Vital Signs 04/07/25 12:35 Height 6 ft Weight 191 lb BMI 25.9 BP 140/72 H Blood Pressure Location Rt brachial Position Sitting Intake Visit Reasons: 6 mnts f/u Prosthetic Aide Required: No Accompanied by: Self / Same As Patient Allergies Sulfa (Sulfonamide Antibiotics) Allergy (Intermediate, Verified 04/07/25 12:41) Fever lamotil Allergy (Intermediate, Uncoded 10/05/24 12:36) Fever HPI Comments Details: 79y/o right handed male with parkinsons and tremors comes for follow up. He is on sinemet 25/100 1 1/2 tabs tid .he is doing well. He had a repeat focused ultrasound on the left and did well. He had Focused USG treatment last week ( Right brain ) .He reports balance issues and speech issues since then He was not a candidate for DBS due to being on eliquis. , His tremors are better. Previous History- About 10 - 12 years ago he started noticing tremors in both his hands R>L - both action and posture.He was diagnosed with familial tremors ( his father and sister have tremors).He was trialed on primidone, propranolol, gabapentin, sinemet , neupro patch etc with poor response.He noticed his tremors worsened in his left UE and also noticed some difficulty in his left leg weakness in 2015 . He was seen by a movement disorder specialist but could not confirm diagnosis. he had LON scan last year c/w decreased dopamine uptake c/w Parkinsons disease. In 2020 he was referred for DBS but was cancelled because of his new diagnosis of Atrial Fibrillation which is now controlled by medications. He had focused ultrasound therapy ( left) on Jul 22 2023 at [facility] - he did well for 2 weeks and then his symptoms recurred. He also tried calitrio which did not help. Cognition- mild issues Sleep- no sleep talking Mood- normal Motivation- normal Speech- softer, and has drooling Handwriting- illegible Using utensils- can manage Dressing-slower SHower- slower Gait- OK slower , feels off balance Bowel movements - ileostomy for ulcerative colitis Bladder- normal, kidney stones Falls- 2 last year( fell off the ladder) No vertigo No double vision No hallucinations No serious head injury- exposure to trichlorethylene [facility] Medical History Primary sclerosing cholangitis Familial tremor Ulcerative colitis Macular degeneration Parkinson's disease without fluctuating manifestations Obstructive sleep apnea of adult Hearing loss Atrial fibrillation Kidney stone Cataract Surgical History H/O endoscopy Mitral valve replaced H/O brain surgery Status post cardiac surgery H/O vasectomy H/O ileostomy Family History Father No problems noted. Mother No problems noted. Social History Household Members: Spouse Housing: House Alcohol intake: former Patient Tobacco Use Status: Former Tobacco user Physical Exam Vital Signs: Last Vital Signs BP 140/72 H 04/07/25 12:35 BMI result Body Mass Index 25.9 Const General: cooperative, healthy appearing and comfortable Nutritional Appearance: average body habitus Orientation/consciousness: patient oriented x3 Neuro Other: Mild Decreased facial expression and blink Mild Hypophonia No postural tremors or action tremors Cog wheel rigidity very mild L>R FFM - mild decreased Foot taps - decreased nam General: patient oriented x3, moves all extremities and no focal motor deficits Cranial nerves: Yes Bilaterally intact EOM present, Yes Midline tongue present and Yes Symmetric palate elevation present Cognition (Neuro): normal cognition Gait exam (Neuro): Other gait observations present (decreased arm swings, stooped, slow and mild decreased stride) Coordination: [id number] test normal Psych Appearance: grossly normal Assessment & Plan Assessment & Plan (1) Familial tremor: Comment: poorly controlled Code(s): G25.0 - Essential tremor Category: Medical (2) Parkinson's disease without fluctuating manifestations: Comment: mild stage 3a Code(s): G20.A1 - Parkinson's disease without dyskinesia, without mention of fluctuations Category: Medical Qualifiers: Dyskinesia presence: without dyskinesia Qualified Code(s): G20.A1 - Parkinson's disease without dyskinesia, without mention of fluctuations Plan continue Carbidopa/levodopa 25/100 - 1 1/2 tabs tid continue exercise he had an excellent response to Focused USG therapy . suggetsed speech exericses - from [facility] program - will consider another session If balance does not improve -will cosnider PT Coding Level of Care Code Est Pt Level 4 (39421) Complex EM visit Add On G2211 Diagnoses Familial tremor G25.0 Parkinson's disease without dyskinesia or fluctuating manifestations G20.A1 Dyskinesia presence: without dyskinesia
--- OUTSIDE RECORDS SUMMARY | 2025-04-07 12:56 | XMS_ITS | Encounter Summary ---
Author Organization [facility] Address [address] [facility] [address] [place] [id number] Phone Care Team Providers Care Negotiations Director Name Role Phone Ricki Bolden MD, PhD Unavailable + [phone] Arin Rachel NP Primary Care Provider Paco Colorado MD, PhD Unavailable Encounter Details Date Type Department Care Team (Late st Contact Info) Description 02/01/2022 Ancillary Orders [facility],Outside Imaging [address] [place] [address] System, Provider Not In, PhD Partners [address] [address] Social History Tobacco Use Types Packs/Day Years Used Date Smoking Tobacco: Former Smokeless Tobacco: Never Sex and Gender Information Value Date Recorded Sex Assigned at Male 09/18/2021 9:32 AM EST Legal Sex Male 10:09 PM EDT Gender Identity Male 09/18/2021 9:33 AM EST Sexual Orientation Straight 09/18/2021 9: 32 AM EST documented as of this encounter Plan of Treatment Upcoming Encounters Date Type Department Care Team (Late st Contact Info) Description 05/05/2025 8:30 AM EDT Telemedicine - audio only [facility] Department of Neurosurgery [address] [place] [address] Jaqueline Crowley, DEMO SPECIALIST [address] [place] [address] [email or web address] 06/28/2025 10:00 AM EDT Telemedicine [facility] Department of Neurosurgery [address] [place] [address] RandyelizabethJaqueline, DEMO SPECIALIST [address] [place] [address] [email or web address] documented as of this encounter Results * XR Lower Extremity Outside (No Interpretation) (12/17/2021 12:00 AM EDT) Narrative SYSTEMGENERATED, DOCUMENTATION - 02/01/2022 3:03 PM EDT This study is for PACS storage only and not for interpretation. us Provider Not In System PhD IMG OUTSIDE IMAGING W /OUT INTERPRETATION Final Result documented in this encounter Visit Diagnoses Not on filedocumented in this encounter Care Teams Negotiations Director Relationship Specialty Start Date End Date Arin Rachel NP [address] [place] [address] [email or web address] PCP - General Nurse Practitioner 10/24/22 Ricki Bolden MD, PhD [address] [place] [id number] [email or web address] 11/12/21 Paco Colorado MD, PhD [address] [facility] [address] [place] [address] [email or web address] Neurosurgery 11/14/22 documented as of this encounter Additional Source Comments The information contained in this document represents components of the legal health record. It is not the complete legal health record.[facility]
--- OUTSIDE RECORDS SUMMARY | 2025-04-07 12:56 | XMS_ITS | Clinical Summary ---
Author Organization [facility] Address [address] [place] [address] Care Team Providers Care Lumber Chain Offbearer Name Role Phone Unavailable Primary Care Provider Unavailabl e Social History Tobacco Use Types Packs/Day Years Used Date Smoking Tobacco: Never Assessed Sex and Gender Information Value Date Recorded Sex Assigned at Not on file Legal Sex Male 12:26 PM EST Gender Identity Not on file Sexual Orientation Not on file Plan of Treatment Health Maintenance Due Date Last Done Comments DTaP/Tdap/Td (1 - Tdap) 1962 Colon Cancer Screening 1989 Pneumococcal 50+ years (1 of 1 - PCV) 1994 Zoster (Shingrix) (1 of 2) 1994 RSV (1 - 1-dose 75+ series) 12/28/2019 COVID-19 Vaccine (2023-2 5 season) 2024 Influenza (#1) 2025 HPV Vaccine Aged Out No longer eligi ble based on patient's age to complete this topic Hep A Aged Out No longer eligi ble based on patient's age to complete this topic Hep B Aged Out No longer eligi ble based on patient's age to complete this topic Hib Aged Out No longer eligi ble based on patient's age to complete this topic Meningococcal ACWY Aged Out No longer eligible based on patient's age to complete this topic Zoster (Zostavax) Discontinued
--- OUTSIDE RECORDS SUMMARY | 2025-04-07 12:56 | XMS_ITS | Clinical Summary ---
Author Organization [facility] Address [address] [place] [address] Care Team Providers Care Technical Clerk Name Role Phone Sam Leija Primary Care Provider [phone] Allergies Active Allergy Reactions Criticality Noted Date Comments Diphenoxylate-Atropine Fever 09/19/2004 Elevated Temperature. Sulfa (Sulfonamide Antibiotics) Fever 09/19/2004 Elevated Temperature Medications Eliquis 5 mg tablet TAKE ONE TABLET BY MOUTH EVERY 12 HOURS FOR PREVENTION OF BLOOD CLOTS 01/07/20 24 Active aspirin 81 mg EC tablet Take 81 mg by mouth daily. Active atorvastatin (LIPITOR) 10 mg tablet TAKE ONE TABLET BY MOUTH ONCE DAILY FOR CHOLESTEROL (DISPENSE WHOLE TABLET) 01/07/20 24 Active carbidopa-levodopa (PARCOPA) 25-100 mg per disintegrating tablet 1 tablet. 05/06/20 23 Active carbidopa-levodopa (SINEMET) 25-100 mg per tablet Take 1 tablet by mouth 3 times a day. 01/07/20 24 Active metoprolol tartrate (LOPRESSOR) 25 mg tablet TAKE ONE TABLET BY MOUTH TWICE DAILY FOR BLOOD PRESSURE/HEART 01/07/20 24 Active cholecalciferol (VITAMIN D3) 1,000 unit tablet [...] concussion/ ? brief LOC after the fall. Sep 2021-- slipped on ice, and bruised [...] By: SHADI GORDON Comment: Colectomy 1977 Immunizations Immunization Administration Dates Next Due COVID-19, Moderna, mRNA, [...] l, Quadrivalent PF 06/11/2023,05/22/2022,06/20/2021,2019 Influenza, Injectable, Madin Sneads Canine Kidney, Preservative Free, Quadrivalent 06/22/2019 Influenza, Trivalent, MDV, Injectable 05/16/2019 ,05/16/2018,06/21/2017 Influenza, Unspecified 06/13/2023,2019,07/14/2016,2014,07/17/2014,06/15/2013,06/29/2012,1 ,06/15/2010,07/19/2009, 008,08/12/2007,07/18/2006,07/30/2005, Novel [id number], All Formulations 08/15/2009 Pneumococcal Conjugate Vacci ne, 13 Valent 02/20/2015 Pneumococcal Vaccine, Unspec ified Formulation 01/01/2011 Pneumococcal conjugate PCV20,polysaccharide [id number] conjugate, adjuvant, PF (Prevnar 20) 06/18/2023 RSV, [...] Health Maintenance Due Date Last Done Comments CT Lung Cancer Screening (Baseline) 10/24/2023 10/24/2022 COVID-19 Vaccine (2023- 5 season) 2024 06/18/2023, 05/22/2022, 12/28/2021, Additional history exists Alcohol/Substance Use Screening 09/15/2024 Depression Screening and Follow-Up 09/15/2024 Health Care Proxy Review 09/15/2024 Social Drivers of Health Lis ual Screening 09/15/2024 Influenza Vaccine (#1) 2025 , 06/11/2023, 05/22/2022, Additional history exists DTaP,Tdap,and Td Vaccines (3 - Td or Tdap) 02/20/2031 02/20/2021, 12/22/2009 Hepatitis B Vaccines Completed 07/18/2014, 02/15/2014, 01/18/2014 Zoster Vaccines Completed 08/09/2019, 03/16, 03/25/2012, Additional history exists RSV Vaccine (60+ years old a nd patients) Completed 06/11/2023 Pneumococcal Vaccine: 50+ Years Completed , 02/20/[address] [facility] [facility] Care Teams Technical Clerk Relationship Specialty Start Date End Date Sam Leija [address] [place] [phone] PCP - General Internal Medicine 03/16/24
--- OUTSIDE RECORDS SUMMARY | 2025-04-07 12:56 | XMS_ITS | Clinical Summary ---
Author Organization [facility] Facility Address [address] [address] Care Team Providers Care Generator Operator Straight Bevel Gear Name Role Phone Unavailable Primary Care Provider Unavailabl e Social History Tobacco Use Types Packs/Day Years Used Date Smoking Tobacco: Never Assessed Sex and Gender Information Value Date Recorded Sex Assigned at Not on file Legal Sex Male 2:37 PM EDT Gender Identity Not on file Sexual Orientation Not on file Plan of Treatment Health Maintenance Due Date Last Done Comments Pneumococcal Vaccine: 50+ Ye ars (1 of 2 - PCV) 12/28/1964 Influenza Vaccine (#1) 2025 Hepatitis B Vaccine Aged Out No longe r eligible based on patient's age to complete this topic Insurance [facility] 1,2,3 (VACCN) [facility] 1,2,3 (VACCN)
== END 2025-04-07 13:01 | disposition home or self-care (01) ==
LOC: HO.HSMS 12:34
PROVIDERS: Referring Provider Psychiatry & Neurology Neurology; Visit Provider Psychiatry & Neurology Neurology
DX: G25.0 Essential tremor (principal); G20.A1 Parkinson's disease without dyskinesia, without mention of fluctuations
CPT/HCPCS: 99214; G2211

== ENCOUNTER → 2025-04-07 12:34 | Outpatient (BNVA) | payer OTHER, SELFPAY | PROVIDERS: Visit Provider Psychiatry & Neurology Neurology | DX: G20.A1 Parkinson's disease without dyskinesia, without mention of fluctuations (principal); G25.0 Essential tremor | CPT/HCPCS: 99212 ==